=== PATIENT | female | born 1975 | race Caucasian/White ===

== ENCOUNTER 2022-03-01 14:00 | Outpatient (RCR) | payer OTHER, SELFPAY | END 2022-04-14 11:07 | disposition home or self-care (01) | PROVIDERS: Visit Provider Physician Assistant | DX: M54.2 Cervicalgia (principal); Z51.89 Encounter for other specified aftercare | CPT/HCPCS: 97110; 97140; 97161 ==

== ENCOUNTER 2023-01-18 14:25 | Outpatient (CLI) | payer OTHER, SELFPAY | END 2023-01-18 14:26 | disposition home or self-care (01) | PROVIDERS: Visit Provider Family Medicine | DX: Z00.00 Encounter for general adult medical examination without abnormal findings (principal); R53.83 Other fatigue; E66.01 Morbid (severe) obesity due to excess calories; Z13.1 Encounter for screening for diabetes mellitus; Z13.6 Encounter for screening for cardiovascular disorders | CPT/HCPCS: 80053; 80061; 83001; 84443 ==

== ENCOUNTER 2023-01-23 07:29 | Day surgery (SDC) | payer OTHER, SELFPAY ==
[2023-01-23] VITALS (13 sets, daily range): BP systolic 106–135; BP diastolic 45–88; PULSE 70–100; RESP 14–20; TEMP 36.2–36.4; O2SAT 94–100; BMI 24.7
[2023-01-23] MEDS: CEFAZOLIN 2 GM in 0.9 % SODIUM CHLORIDE Mini-bag 100 ML IVPB (07:19)
[2023-01-23] MEDS: LACTATED RINGERS 1000 ML 1,000 ML 100 ML IV ×2 (08:15→09:50)
[2023-01-23] MEDS: SODIUM CHLORIDE 0.9 % (FLUSH) 10 ML SYRINGE IVF (08:19)
[2023-01-23 08:24] LABS: Ur HCG Qualitative* Negative (Negative)
--- NOTE | 2023-01-23 08:52 | SUR.PREOP ---
TIME?OUT:?right shoulder PT/RN/MDA?VERIFICATION?OF?SURGICAL?SITE,?PROCEDURE,?AND?CONSENT OBTAINED?PRIOR?TO?INVASIVE?PROCEDURE.
[2023-01-23] MEDS: MIDAZOLAM HCL 1 MG/ML inj IVP (08:55)
[2023-01-23] MEDS: fentaNYL 100 MCG/2 ML inj IVP (08:55)
[2023-01-23] MEDS: EPINEPHrine 1 MG in SODIUM CHLORIDE IRRIG SOLUTION 3,000 ML 9003 MG IRRIGATION ×3 (09:41→10:17)
--- NOTE | 2023-01-23 10:46 | W.ANESCHARGE ---
Anesthesia Charges Start Date/Time Anesthesia Start Date: 01/23/23 Anesthesia Start Time: 09:12 Stop Date/Time Anesthesia Stop Date: 01/23/23 Anesthesia Stop Time: 10:45
--- NOTE | 2023-01-23 10:55 | W.ANESCHARGE ---
Anesthesia Charges Start Date/Time Anesthesia Start Date: 01/23/23 Anesthesia Start Time: 09:12 Stop Date/Time Anesthesia Stop Date: 01/23/23 Anesthesia Stop Time: 10:45
--- NOTE | 2023-01-23 11:21 | W.PM.NB ---
Nerve Block Nerve Block Time Seen by Provider: 08:58 Date Seen: 01/23/23 Type of block requested by surgeon for post-operative analgesia: supraclavicular Side: right Time out performed: Yes Verification of patient name: Yes Verification of date of : Yes Site marking: site marked Name of person performing procedure: Mikhail Continuous monitoring Was continuous monitoring of O2 sat, B/P, clinical research monitor, recorded every 15 minutes?: Yes Procedure Checklist: sterile prep, needles and gloves Ultrasound guided. Images saved: Yes Medications given in 5ml increments after negative aspiration: Marcaine %: 0.5 mL: 10 Needle gauge: 22 and Exparel mL: 10 Needle gauge: 22 Patient tolerated procedure well: Yes Block Charges Block Charge (with Pro Fee): Brachial Plexus Use of Ultrasound Machine for Block: Yes- US Guidance/pain block
--- NOTE | 2023-01-23 11:28 | PM.ORPRC ---
Procedure Note Date of procedure: 01/23/23 Procedure: PREOPERATIVE DIAGNOSES: 1. Right shoulder rotator cuff tear. POSTOPERATIVE DIAGNOSES: 1. Right shoulder rotator cuff tear - supraspinatus (high-grade partial thickness tear, near full-thickness) NAME OF OPERATION: 1. Right shoulder arthroscopic rotator cuff repair. SURGEON: Brayan Salinas MD HEALTHCARE FACILITY ADMINISTRATOR: Ralph Canseco. Of note, a skilled assistant restaurant general manager was critical for this case to aide in patient positioning, suture manipulation, arm positioning, instrument positioning, and closure. ANESTHESIA: General plus preoperative supraclavicular block. EBL: 25 mL IMPLANTS: Arthrex 2.6 mm FiberTak RC (x1); 5.5 mm BioComposite SwiveLock suture anchor (x1) COMPLICATIONS: None evident INDICATIONS: The patient is a pleasant, 47-year-old female who has experienced right shoulder pain that has been increasing in recent time. Physical exam and imaging were consistent with a rotator cuff tear. Given their findings, as well as the weakness and pain, and inadequate response to nonoperative management, recommendation was made for surgery. FINDINGS: Exam under anesthesia revealed stable shoulder with excellent range of motion. The diagnostic arthroscopy revealed healthy chondral surfaces of the glenohumeral joint. The Subscapularis tendon was intact and with a relatively healthy attachment. The long head of the biceps tendon was intact. The superior rotator cuff tendon was found to be torn and high-grade partial-thickness manner. The tear was nearly full-thickness. Consistent with the MRIs imaging. The labrum was minimally frayed knee posterior superior region. No loose bodies were identified within the pouch or subscapularis recess. PROCEDURE: Following a thorough discussion of risks, benefits, and alternatives, consent was obtained and the right shoulder was marked. The patient was brought to the operating room and placed supine on the operating table. Induction of anesthesia was completed after preoperative supraclavicular block was administered in preop holding. Appropriate time out was performed identifying proper patient, site, and procedure. 2 g IV Ancef was administered within 1 hour of incision preoperatively. The right upper extremity was prepped and draped in the appropriate sterile fashion using ChloraPrep prep. This was after the patient was positioned in the beach chair with their head in neutral alignment and all bony prominences well padded. The shoulder was insufflated with 20mL of normal saline via an 18g spinal needle from a posterior approach. An 11 blade skin incision allowed a blunt trochar to be inserted and diagnostic arthroscopy to be performed with the findings as noted above. An anterior portal was established with an outside in technique. This allowed the probe to be inserted and confirm the diagnostic arthroscopic findings. The shaver was then inserted and allowed debridement of the deep surface of supraspinatus. Following this, the upper border subscapularis was probed and found to be stable without significant tearing. Only minimal fraying at the lesser tuberosity insertion site. Thereafter, the subacromial space was entered. Here, please see complete bursectomy was performed. Further inspection of the supraspinatus and infraspinatus rotator cuff was performed. This identified the tear as noted above. The margins of the tear were debrided, and the greater tuberosity was debrided with a combination of the apollo cautery, shaver, and bur on reverse setting. [After gentle decortication, a single medial row anchor was placed that was double swedged. The FiberTape sutures from the FiberTak RC anchor were passed independently. The suture tape eyelet sutures were also passed independently creating 4 tails. All 4 tails were brought to a single lateral row anchor. Excellent reapproximation of the rotator cuff to the greater tuberosity was achieved. Prior to anchor goat driver removal, the eyelet sutures were tugged on for each anchor and found that the anchor had excellent stability within the bone. The shoulder was placed through range of motion and found to be stable. The rotator cuff was re-probed and found to be stable. Instruments were removed. Excess fluid was drained, closure performed with 4-0 Monocryl and Steri-Strips. Dressings were applied. Sling was applied. The patient was awoken from anesthesia and transferred to the PACU in stable condition. A skilled assistant restaurant general manager was critical for this case to aid in patient positioning, limb positioning, skill to manipulate arthroscopic instruments and camera, suture management, patient safety, and closure. PLAN: 1. Elbow, forearm, wrist and digit range of motion as tolerated. 2. Encouraged ice. 3. Oxycodone for pain as needed. 4. Sling at all times except for ROM and showering. 5. Follow up with PA visit in 1-2 weeks for wound check. Initiate physical therapy following that visit for passive range of motion. Initiate active assisted range of motion at 3-4 weeks due to small tear size. May do pendulums now.
--- NOTE | 2023-01-23 12:07 | SUR.PHASEI ---
pacu lr fluids 580 remaining at end of phase 1 at 1111
== END 2023-01-23 12:27 | disposition home or self-care (01) ==
PROVIDERS: Anesthesiology; PCP Family Medicine; Visit Provider Orthopaedic Surgery Sports Medicine
PROC: (CPT 29805; principal; 2023-01-23 09:00)
DX: M75.101 Unspecified rotator cuff tear or rupture of right shoulder, not specified as traumatic (principal); G89.18 Other acute postprocedural pain
CPT/HCPCS: 29827; 01630; 64415; 76942; 81025; C1713; C9290; J0171; J0330; J0665; J0690; J1100; J2250; J2405; J2704; J3010; J7120; L3670

== ENCOUNTER 2023-05-09 11:15 | Outpatient (RCR) | payer OTHER, SELFPAY | END 2023-09-04 16:48 | disposition home or self-care (01) | PROVIDERS: PCP Family Medicine; Visit Provider Orthopaedic Surgery Sports Medicine | DX: M75.121 Complete rotator cuff tear or rupture of right shoulder, not specified as traumatic (principal); Z98.890 Other specified postprocedural states; R53.1 Weakness; R29.898 Other symptoms and signs involving the musculoskeletal system; Z51.89 Encounter for other specified aftercare | CPT/HCPCS: 97110; 97140; 97161 ==

== ENCOUNTER 2024-01-29 13:14 | Outpatient (CLI) | payer OTHER, SELFPAY | END 2024-01-29 13:15 | disposition home or self-care (01) | PROVIDERS: Visit Provider Family Medicine | DX: Z00.00 Encounter for general adult medical examination without abnormal findings (principal); G47.26 Circadian rhythm sleep disorder, shift work type; F41.1 Generalized anxiety disorder; Z13.6 Encounter for screening for cardiovascular disorders; Z13.1 Encounter for screening for diabetes mellitus; Z13.29 Encounter for screening for other suspected endocrine disorder | CPT/HCPCS: 80053; 80061; 83001; 84443 ==

== ENCOUNTER 2024-01-30 10:00 | Outpatient (CLI) | payer OTHER, SELFPAY ==
[2024-01-30 10:54] LABS: Creatine Kinase* 294 U/L (41-117); Gamma Glutamyl Transpeptidase* 35 U/L (8-55)
[2024-01-31 18:23] LABS: Hep A Ab, IgM Negative (Negative); Hep B Core Ab, IgM Negative (Negative); Hep B Surface Antigen Negative (Negative); Hep C Ab by CIA Index 0.07 IV; Hep C Ab by CIA Interp Negative (Negative)
== END 2024-01-30 10:01 | disposition home or self-care (01) ==
PROVIDERS: Visit Provider Family Medicine
DX: R79.89 Other specified abnormal findings of blood chemistry (principal)
CPT/HCPCS: 80074; 82550; 82977; 85610

== ENCOUNTER 2024-01-31 10:33 | Outpatient (CLI) | payer OTHER, SELFPAY ==
--- NOTE | 2024-01-31 10:45 | CRLHL7_ITS ---
For Patients: As a result of the Century Cures Act, medical imaging exams and procedure reports are released immediately into your electronic medical record. You may view this report before your referring provider. If you have questions, please contact your health care provider. Indication: Elevated liver function tests Technique: Right upper quadrant ultrasound utilizing grayscale and color flow techniques Comparison: None Findings: Pancreas: Inadequately interrogated/1 image only with the minimally visualized pancreas on this single image being unremarkable. Abdominal aorta: Visualized portions are normal in caliber. Liver: Measures approximately 16 centimeters in length and demonstrates normal echogenicity. No cysts or masses. Color flow is present within the main portal vein. Gallbladder: No gallbladder wall thickening, stones or pericholecystic fluid. Common bile duct: 4 millimeters. Right kidney: Measures 12 centimeters in length with normal cortical thickness and cortical echogenicity. No stones or hydronephrosis. Free fluid: None. Impression: No sonographic findings to explain the given history. Inadequately visualized pancreas, recommend appropriate laboratory correlation and further imaging as clinically warranted. Dictated by Shelton Multani MD @ 02/01/2024 5:44:05 PM (Electronically Signed)
== END 2024-01-31 10:34 | disposition home or self-care (01) ==
LOC: US 10:34
PROVIDERS: Visit Provider Family Medicine
DX: R79.89 Other specified abnormal findings of blood chemistry (principal)
CPT/HCPCS: 76705

== ENCOUNTER 2024-06-13 14:30 | Outpatient (RCR) | payer OTHER, SELFPAY ==
--- OUTSIDE RECORDS SUMMARY | 2024-04-18 12:58 | XMS_ITS | Clinical Summary ---
Author Organization [facility] Address [address] [place] [address] Care Team Providers Care Taker Down Name Role Phone AbelinoernstAlexandra deckerluke Donis APRN Primary Care Provider [phone] [phone] Allergies No known active allergies Medications calcium carbonate-vitami n D2 500 mg(1,250mg) -200 unit tablet Take 1 tablet by mouth once daily. Active meloxicam (MOBIC) 15 MG tabletIndication s:Achilles tendinitis of right lower extremity Take 1 tablet (15 mg total) by mouth once daily. 90 tablet 1 03/21/2016 5:39 PM HEALTH SCIENCES MANAGER 03/21/2016 Active sertraline (ZOLOFT) 100 MG tabletIndication s:Depression, unspecified depression type Take 1 tablet (100 mg total) by mouth once daily. 90 tablet 1 10/26/2016 12:11 PM CDT 10/25/2016 Active Active Problems Problem Noted Date Diagnosed Date Ligamentous laxity of right knee 03/06/2015 Overview (03/06/2015): ACL tear 04/2014 Anxiety 03/06/2015 Insomnia 05/12/2014 Resolved Problems Problem Noted Date Diagnosed Date Resolved Date Normal labor and delivery 10/28/2013 Immunizations Name Administration Dates Next Due DTaP 09/14/2012 Influenza Four-QIV Pres Free 3+ IM 01/24/2015 PPD Test 05/09/2016 Family History Medical History Relation Name Comments Gout Brother Hypertension Father Cancer Maternal Aunt breast and col on No Known Problem Mother Relation Name Status Comments Brother Father Alive Maternal Aunt Mother Alive Social History Tobacco Use Types Packs/Day Years Used Date Smoking Tobacco: Never Smokeless Tobacco: Never Alcohol Use Standard Drinks/Week Comments No 0 (1 standard drink = 0.6 oz pur e alcohol) Comments No Sex and Gender Information Value Date Recorded Sex Assigned at Not on file Legal Sex Female 9:45 PM CDT Gender Identity Not on file Sexual Orientation Not on file Last Filed Vital Signs Vital Sign Reading Time Taken Comments Blood Pressure 110/56 05/08/2015 1:35 PM HEALTH SCIENCES MANAGER Pulse 67 03/06/2015 7:51 AM HEALTH SCIENCES MANAGER Temperature 36.4 C (97.6 F) 03/06/2015 7:51 AM HEALTH SCIENCES MANAGER Respiratory Rate 18 10/29/2013 7:20 AM CDT Oxygen Saturation 98% 05/06/2014 8:08 AM HEALTH SCIENCES MANAGER Inhaled Oxygen Concentration - - Weight 68.5 kg (151 lb) 05/08/2015 1:35 PM HEALTH SCIENCES MANAGER Height 172.7 cm (5' 8) 03/06/2015 7:51 AM HEALTH SCIENCES MANAGER Body Mass Index 22.96 03/06/2015 7:51 AM HEALTH SCIENCES MANAGER Plan of Treatment Not on file Insurance [place] [id number] Advance Directives * Full Code (Latest Code Status on File) Date Activated Date Inactivated Comments 10/28/2013 7:50 AM 10/28/2013 5:44 PM Question Answer Comments This code status was determined by: Other (pleas e list) Patient is Care Teams Taker Down Relationship Specialty Start Date End Date Sandra Perry, WRAPPER SHEETER PCP - General Family Medicine 03/12/16
--- OUTSIDE RECORDS SUMMARY | 2024-04-18 12:58 | XMS_ITS | Referral Summary ---
Author Organization [facility] Address [address] [place] [address] Care Team Providers Care Instructor Bus Trolley And Taxi Name Role Phone AbelinoernstSandra decekr Gagandeep BARNETT Primary Care Provider [phone] [phone] Allergies No known active allergies Medications calcium carbonate-vitami n D2 500 mg(1,250mg) -200 unit tablet Take 1 tablet by mouth once daily. Active meloxicam (MOBIC) 15 MG tabletIndication s:Achilles tendinitis of right lower extremity Take 1 tablet (15 mg total) by mouth once daily. 90 tablet 1 03/21/2016 5:39 PM EXPORT PACKER 03/21/2016 Active sertraline (ZOLOFT) 100 MG tabletIndication [...] Free 3+ IM 01/24/2015 PPD Test 05/09/2016 Social History Tobacco Use Types Packs/Day Years [...] Comments Blood Pressure 110/56 05/08/2015 1:35 PM EXPORT PACKER Pulse 67 03/06/2015 7:51 AM EXPORT PACKER Temperature 36.4 C (97.6 F) 03/06/2015 7:51 AM EXPORT PACKER Respiratory Rate 18 10/29/2013 7:20 AM CDT Oxygen Saturation 98% 05/06/2014 8:08 AM EXPORT PACKER Inhaled Oxygen Concentration - - Weight 68.5 kg (151 lb) 05/08/2015 1:35 PM EXPORT PACKER Height 172.7 cm (5' 8) 03/06/2015 7:51 AM EXPORT PACKER Body Mass Index 22.96 03/06/2015 7:51 AM EXPORT PACKER Plan of Treatment Not on file Insurance [place] [id number] Advance Directives * Full Code (Latest Code Status on File) Date Activated Date Inactivated Comments 10/28/2013 7:50 AM 10/28/2013 5:44 PM Question Answer Comments This code status was determined by: Other (kofi small) Patient is Care Teams Instructor Bus Trolley And Taxi Relationship Specialty Start Date End Date Sandra Perry, TACKER OFF PCP - General Family Medicine 03/12/16
--- OUTSIDE RECORDS SUMMARY | 2024-04-18 12:59 | XMS_ITS | Encounter Summary ---
Author Organization [facility] Address [address] [place] [address] Phone Care Team Providers Care Generator Man Name Role Phone Satish Castro MD Primary Care Provider Zbigniew Sorenson MD Primary Care Provider [phone] Sandra Perry APRN Primary Care Provider [phone] Encounter Details Date Type Department Care Team (Late st Contact Info) Description 07/30/2013 Abstract [facility] Medicine [facility] [address] [place] [address] Abstraction, Provider *ABSTRACTION USE ONLY*DONT DELETE Social History Tobacco Use Types Packs/Day Years Used Date Smoking Tobacco: Never Alcohol Use Standard Drinks/Week Comments No 0 (1 standard drink = 0.6 oz pur e alcohol) Comments Yes Sex and Gender Information Value Date Recorded Sex Assigned at Not on file Legal Sex Female 9:45 PM CDT Gender Identity Not on file Sexual Orientation Not on file documented as of this encounter Plan of Treatment Not on file documented as of this encounter Visit Diagnoses Not on filedocumented in this encounter Care Teams Generator Man Relationship Specialty [place] [address] [place] [address] PCP - General 09/12/12 05/07/15 Zbigniew Sorenson MD [address] [address] PCP - General Family Medicine 05/08/15 03/11/16 Sandra Perry APRN [address] [address] PCP - General Family Medicine 03/12/16 documented as of this encounter
--- OUTSIDE RECORDS SUMMARY | 2024-04-18 12:59 | XMS_ITS | Encounter Summary ---
Author Organization [facility] Address [address] [place] [address] Phone Care Team Providers Care Industrial Registered Nurse Name Role Phone Satish Castro MD Primary Care Provider Zbigniew Sorenson MD Primary Care Provider [phone] Sandra Perry APRN Primary Care Provider [phone] [phone] Encounter Details Date Type Department Care Team (Late st Contact Info) Description 07/30/2013 Abstract [facility] Medicine [facility] [address] [facility] [place] [address] Abstraction, Provider *ABSTRACTION USE ONLY*DONT DELETE [...] on filedocumented in this encounter Care Teams Industrial Registered Nurse Relationship Specialty [place] [address] [place] [address] PCP - General 09/12/12 05/07/15 Zbigniew Sorenson MD [address] [address] PCP - General Family Medicine 05/08/15 03/11/16 Sandra Perry APRN [address] [address] PCP - General Family Medicine 03/12/16 documented as of this encounter
--- OUTSIDE RECORDS SUMMARY | 2024-04-18 12:59 | XMS_ITS | Encounter Summary ---
Author Organization [facility] Address [address] [place] [address] Phone Care Team Providers Care Furniture Sales Consultant Name Role Phone Satish Castro MD Primary Care Provider [phone] Zbigniew Sorenson MD Primary Care Provider [phone]- [phone] Sandra Perry APRN Primary Care Provider [phone] Reason for Referral * (Routine) - Closed Specialty Diagnoses / Procedures Referred By Robert ramos Referred To Contact Diagnoses Visit for screening mammogram Procedures Mammo Digital 3D Screening Bilateral Satish Castro MD Phone: tel: fax: Referral ID Status Reason Start Date Expiration Date Visits Re quested Visits Authorized [id number] Closed 04/03/2015 07/02/2015 1 1 ER OFF Encounter Details Date Type Department Care Team (Latest Contact Info) Description 04/03/2015 Order Cupola Worker [facility] [address] [place] [address] [place] [address] [place] [address] Visit for screening mammogram (Primary Dx) Social History Tobacco Use Types Packs/Day Years [...] on file documented as of this encounter Results * Mammo Digital 3D Screening Bilateral (05/08/2015 12:23 PM POURER OFF) Anatomical Region Laterality Modality Breast Bilateral Mammography Impressions 05/08/2015 12:39 PM POURER OFF 1. Stable bilateral mammogram. 2. The images were reviewed with computer aided detection. 3. In addition to screening mammograms, monthly self breast exams and routine clinical exams are recommended. Assessment BI-RADS 2: Benign findings Follow-up: One year Layman's letter sent. Narrative 05/08/2015 12:39 PM POURER OFF REASON FOR EXAM: Breast cancer screening. DISCUSSION: Implant and displaced implant images were done. Digital screening was performed with 3-D tomographic imaging was done. The breasts have heterogeneous density. This can limit the sensitivity of mammography. The images were reviewed with computer aided detection and compared to 11/01/2011 and 05/19/2014. There are no new dominant masses, suspicious clustered calcifications or suspicious changes in the parenchymal pattern. Procedure Note Cris Singh MD - 05/08/2015 REASON FOR EXAM: Breast cancer screening. DISCUSSION: Implant and displaced implant images were done. Digital screening wasperformed with 3-D tomographic imaging was done. The breasts haveheterogeneous density. This can limit the sensitivity of mammography. Theimages were reviewed with computer aided detection and compared to 11/01/2011 and 05/19/2014. There are no new dominant masses, suspicious clustered calcifications orsuspicious changes in the parenchymal pattern. IMPRESSION: 1. Stable bilateral mammogram. 2. The images were reviewed with computer aided detection. 3. In addition to screening mammograms, monthly self breast exams androutine clinical exams are recommended. Assessment BI-RADS 2: Benign findings Follow-up: One year Layman's letter sent. us Satish Castro MD IMG MAMMOGRAPHY ORDERABLES Genevieve l Result documented in this encounter Visit Diagnoses Diagnosis Visit for screening mammogram- Primary Visit for screening mammogram documented in this encounter Care Teams Furniture Sales Consultant Relationship Specialty [place] [address] [facility] [address] [place] [phone] PCP - General 09/12/12 05/07/15 Zbigniew Sorenson MD [address] [address] PCP - General Family Medicine 05/08/15 03/11/16 Sandra Perry, GENERAL SCRAP WORKER [address] [address] PCP - General Family Medicine 03/12/16 documented as of this encounter
== END 2024-07-18 11:05 | disposition home or self-care (01) ==
PROVIDERS: PCP Family Medicine; Visit Provider Orthopaedic Surgery
DX: M75.121 Complete rotator cuff tear or rupture of right shoulder, not specified as traumatic (principal); R53.1 Weakness; Z51.89 Encounter for other specified aftercare
CPT/HCPCS: 97110; 97140; 97161

== ENCOUNTER 2024-07-25 13:19 | Outpatient (CLI) | payer OTHER, SELFPAY | END 2024-07-25 13:20 | disposition home or self-care (01) | PROVIDERS: PCP Family Medicine; Visit Provider Obstetrics & Gynecology | DX: R79.89 Other specified abnormal findings of blood chemistry (principal); Z11.3 Encounter for screening for infections with a predominantly sexual mode of transmission; Z11.59 Encounter for screening for other viral diseases; Z11.4 Encounter for screening for human immunodeficiency virus [HIV] | CPT/HCPCS: 80053; 81513; 86592; 86703; 86803; 87481; 87491; 87591; 87661 ==

== ENCOUNTER 2024-07-31 10:42 | Outpatient (REF) | payer OTHER, SELFPAY ==
[2024-07-31 11:58] LABS: Appearance Urine Clear (Clear); Bilirubin Urine Negative (Negative); Blood Urine Negative (Negative); Color Urine Yellow (Yellow); Glucose Urine Negative (Negative); Ketones Urine Negative (Negative); Leukocyte Esterase Urine Negative (Negative); Nitrite Urine Negative (Negative); Protein Urine Negative (Negative); Urobilinogen Urine 0.2 (0.2-1.0); pH Urine 5.5 (5.0-8.5)
[2024-07-31 12:06] LABS: RBC Urine 0-2 (0-2); WBC Urine 0-2 (0-5)
[2024-07-31 12:31] LABS: Chloride* 101 mmol/L (96-114); Sodium* 137 mmol/L (135-149)
[2024-07-31 12:32] LABS: Potassium* 4.2 mmol/L (3.6-5.1)
[2024-07-31 12:34] LABS: Blood Urea Nitrogen* 16 mg/dL (7-30); Estimated Glomerular Filt Rate 69 ml/min
[2024-07-31 12:35] LABS: Anion Gap 7 mEq/L (7-15); Calcium* 9.4 mg/dL (8.4-10.6); Carbon Dioxide* 29 mmol/L (20-32); Glucose* 79 mg/dL (60-115)
== END 2024-07-31 10:43 | disposition home or self-care (01) ==
LOC: NPCLIENT 10:42
PROVIDERS: PCP Family Medicine; Visit Provider Family Medicine
DX: N17.9 Acute kidney failure, unspecified (principal); R79.89 Other specified abnormal findings of blood chemistry
CPT/HCPCS: 80048; 81001; 87086

== ENCOUNTER 2025-03-31 10:54 | Outpatient (CLI) | payer OTHER, SELFPAY | END 2025-03-31 10:55 | disposition home or self-care (01) | PROVIDERS: PCP Family Medicine; Visit Provider Family Medicine | DX: Z00.00 Encounter for general adult medical examination without abnormal findings (principal); N95.1 Menopausal and female climacteric states; Y93.02 Activity, running | CPT/HCPCS: 80053; 82306; 82550; 82565; 82610; 83001; 83605 ==

== ENCOUNTER 2025-04-11 11:08 | Outpatient (CLI) | payer OTHER, SELFPAY | END 2025-04-11 11:09 | disposition home or self-care (01) | LOC: NFLDREF 04-14 12:21 | PROVIDERS: PCP Family Medicine; Referring Provider Family Medicine; Visit Provider Family Medicine | DX: E04.1 Nontoxic single thyroid nodule (principal); R79.89 Other specified abnormal findings of blood chemistry; R74.8 Abnormal levels of other serum enzymes | CPT/HCPCS: 80053; 80061; 82550; 82728; 83540; 83550; 84443 ==